=== PATIENT | female | born 1955 ===

== ENCOUNTER 2024-05-23 08:49 | Outpatient (CLI) | payer MEDICARE, BC ==
[2024-05-23] VITALS (21 sets, daily range): BP systolic 118–152; BP diastolic 61–89; PULSE 57–74
== END 2024-05-23 23:59 | disposition home or self-care (01) ==
LOC: CARD DIAG 08:49
PROVIDERS: ATTEND Internal Medicine Interventional Cardiology
DX: R55 Syncope and collapse (principal)
CPT/HCPCS: 93660